=== PATIENT | female | born 1940 | race Caucasian/White ===

== ENCOUNTER → 2016-08-10 | Outpatient (CLI) | payer MEDICARE, MEDICAID ==
--- NOTE | 2016-08-10 12:30 | DI ---
Indication: ITS.REASON: M25.552 PAIN IN LEFT HIP; M54.5 LOW BACK PAIN PROCEDURE: HIP LEFT 2 VIEW: Encounter: Initial Comparison: None Findings: There is no acute fracture, dislocation or malalignment identified. Hip joint space is normal. No significant degenerative changes. Impression: No acute osseous abnormality. .
--- NOTE | 2016-08-10 12:46 | DI ---
Indication: ITS.REASON: M25.552 PAIN IN LEFT HIP; M54.5 LOW BACK PAIN PROCEDURE: LUMBAR SPINE COMP W/O BEND: Encounter: Initial Comparison: None Findings: Alignment of the lumbar spine shows grade 1 degenerative anterolisthesis of L4 on L5. No acute fracture or subluxation. The vertebral body heights are maintained. Oblique views show no discrete pars defects. Mild disk space narrowing at L3-L4 and L4-L5. Degenerative facet disease at L4-S1. Impression: No acute fracture. Degenerative disk and facet disease of the lower lumbar spine. .
== END ==
LOC: IMA 11:52
PROVIDERS: ATTEND Nurse Practitioner Family
DX: M51.36 Other intervertebral disc degeneration, lumbar region (principal); M47.896 Other spondylosis, lumbar region; M47.897 Other spondylosis, lumbosacral region; M25.552 Pain in left hip; M54.5 Low back pain

== ENCOUNTER → 2016-08-13 | Outpatient (CLI) | payer MEDICARE, MEDICAID ==
--- NOTE | 2016-08-13 14:17 | DI ---
Indication: ITS.REASON: R20.2 LT/RT ARM PARATH., Z98.1 HX OF FUSION CSP PROCEDURE: MRI CERVICAL SPINE W/O CONTRAS: Encounter: Initial Comparison: None Technique: Multiplanar multisequence MR imaging of the cervical spine was performed without contrast. Findings: Alignment of the cervical spine is straightened with loss of the normal lordosis. There is grade 1 degenerative anterolisthesis of C7 on T1. Anterior C5-C6 spinal fusion is noted. There is also osseous fusion of the C4 and C5 vertebral bodies. Bone marrow signal intensity is normal. No acute fracture. The cervical and visualized upper thoracic spinal cord signal intensity is normal. Paraspinal soft tissues are within normal limits. Segmental analysis: C2-C3: No focal disk herniation, central canal or neural foraminal stenosis. C3-C4: Central disk osteophyte impressing upon the thecal sac causing mild to moderate central canal stenosis. Degenerative facet and uncovertebral changes resulting in severe bilateral neural foraminal stenosis. C5: No focal disk herniation or central canal stenosis. Right neural foramen appears normal. Mild uncovertebral changes causing mild left neural foraminal stenosis. C5-C6: Degenerative facet and uncovertebral changes left greater than right with severe left and moderate right neural foraminal stenosis. No significant central canal stenosis. C6-C7: Central disk protrusion impressing upon the thecal sac resulting in mild central canal stenosis. Degenerative facet disease with severe left and moderate right neural foraminal stenosis. C7-T1: No significant disk herniation, central canal or neural foraminal stenosis. T1-T2: Degenerative anterolisthesis resulting in moderate to severe bilateral neural foraminal stenosis and mild central canal narrowing. Impression: Degenerative disk and facet disease as above. .
== END ==
LOC: IMA 13:01
PROVIDERS: ATTEND Nurse Practitioner Family
DX: M50.122 Cervical disc disorder at C5-C6 level with radiculopathy (principal); R20.2 Paresthesia of skin; Z98.1 Arthrodesis status